=== PATIENT | male | born 1980 | race Caucasian/White ===

== ENCOUNTER 2016-10-14 11:02 | Emergency (ER) | payer BC ==
[~2016-10-14 11:02] MED LIST: PERC5TAB6 PO; TAMS0.4C2 PO
[2016-10-14] MEDS ORDERED: CYCLOBENZAPRINE 10 MG TAB As Ordered ONE (12:04)
[2016-10-14] MEDS ORDERED: ACETAMINOPHEN 325 MG TAB As Ordered ONE (12:04)
[2016-10-14] MEDS ORDERED: KETOROLAC 30 MG/ML VIAL (J1885) As Ordered ONE (12:04)
[2016-10-14 12:18] LABS: BASO % 0.4 % (0.0-1.0); EOS # 0.4 K/mm3 (0.0-0.50); EOS % 3.4 % (0.0-3.0); LARGE UNSTAINED CELL # 0.2 K/mm3 (0.0-0.4); LARGE UNSTAINED CELL % 1.5 % (0.0-4.0); LYMPH # 2.5 K/mm3 (1.5-4.5); LYMPH % 21.7 % (24.0-44.0); MEAN CORPUSCULAR HEMOGLOBIN 30.1 pg (27.0-33.0); MEAN CORPUSCULAR HGB CONC 34.1 g/dl (32.0-36.5); MEAN CORPUSCULAR VOLUME 88.2 fl (80.0-96.0); MONO # 0.6 K/mm3 (0.0-0.8); MONO % 5.7 % (0.0-5.0); NEUTROPHILS # 7.4 K/mm3 (1.8-7.7); NEUTROPHILS % 67.4 % (36.0-66.0); PLATELET COUNT, AUTOMATED 240 k/mm3 (150-450); RED CELL DISTRIBUTION WIDTH 12.2 % (11.5-14.5); WHITE BLOOD COUNT 10.9 K/mm3 (4.0-10.0)
[2016-10-14 12:40] LABS: ERYTHROCYTE SEDIMENTATION RATE 2 mm/hr (0-15)
--- NOTE | 2016-10-14 13:36 | REP ---
RIGHT ANKLE SERIES: Four views. HISTORY: Pain. FINDINGS: Four views right ankle demonstrate an intact ankle mortise. No fracture or subluxation is seen. IMPRESSION: Negative right ankle views. Signed by Roly Steven MD 10/14/2016 02:05 P
--- NOTE | 2016-10-14 13:37 | REP ---
CERVICAL SPINE SERIES: Seven views. HISTORY: Pain. FINDINGS: Lateral views done in flexion/extension and neutral position show preserved vertebral body heights and normal alignment. Disc spaces are maintained. No subluxation or instability is seen. Open mouth odontoid and AP views are unremarkable. Oblique images demonstrate intact neural foramina bilaterally at each cervical level and normally aligned facets. IMPRESSION: Negative cervical spine radiographs. Signed by Roly Steven MD 10/14/2016 02:05 P
--- NOTE | 2016-10-14 14:11 | EDDOCDS ---
Physician Documentation [facility] Name: Alfredo Maddox Age: 36 yrs Sex: Male : 1980 Arrival Date: 10/14/2016 Time: 11:02 Bed PD Private MD: NO PRIMARY PHYSICIAN, . Disposition: 10/14/16 13:52 Discharged to Home/Self Care. Impression: Cervicalgia, Pain in right leg. - Condition is Stable. - Discharge Instructions: Heat Therapy. - Prescriptions for naproxen 500 mg Oral tablet - take 1 tablet by ORAL route every 12 hours; 28 tablet. Tylenol 325 mg Oral Tablet - take 2 tablet by ORAL route every 6 hours as needed; 1 bottle. Cyclobenzaprine 10 mg Oral Tablet - take 1 tablet by ORAL route 3 times per day As needed; 15 tablet. - Medication Reconciliation, Local Pharmacy Hours form. - Follow up: Emergency Department; When: As soon as possible; Reason: Worsening of conditions. Follow up: Private Physician; When: 2 - 3 days; Reason: Recheck today's complaints. - Problem is new. - Symptoms are unchanged. Historical: - Allergies: no known allergies; - Home Meds: 1. none - PMHx: Kidney stones; - PSHx: Appendectomy; hernia; - Social history: Smoking status: Patient uses tobacco products, current every day smoker. No barriers to communication noted, The patient speaks fluent Dominican, Speaks appropriately for age. - Family history: Not pertinent. - : The pt / caregiver states he / she is not on anticoagulants. Home medication list is obtained from the patient. - Exposure Risk Screening:: None identified. Vital Signs: 10/14 11:04 BP 155 / 68 RA Sitting (auto/lg); Pulse 96; Resp 18; Temp 97.7(T); Pulse Ox 98% on R/A; rs6 Weight 72.57 kg / 159.99 lbs (R); Height 5 ft. 6 in. (167.64 cm) (R); Pain 9/10; 13:55 BP 136 / 78; Pulse 60; Resp 16; Temp 97.6; Pulse Ox 99% on R/A; Pain 8/10; kr3 14:06 BP 133 / 89; Pulse 62; Resp 16; Temp 96.7(O); Pulse Ox 98% on R/A; Pain 3/10; sew 11:04 Body Mass Index 25.82 (72.57 kg, 167.64 cm) rs6 MDM: 12:02 Ankle, Complete Ordered. EDMS 12:02 Cyclobenzaprine 10 mg PO once ordered. jk8 12:02 ketorolac 60 mg IM once ordered. jk8 12:02 Acetaminophen Tablet 650 mg PO once ordered. jk8 12:03 CRP Ordered. EDMS 12:03 Spine, Cervical Ordered. EDMS 12:03 CBC with Diff Ordered. EDMS 12:10 ERYTHROCYTE SEDIMENTATION RATE Ordered. EDMS 13:09 Financial registration complete. mpb 13:09 [facility] Payment Agreement was scanned into [employer] and attached to record. mpb 13:49 CBC with Diff Reviewed. jk8 13:49 CRP Reviewed. jk8 13:49 ERYTHROCYTE SEDIMENTATION RATE Reviewed. jk8 13:49 Ankle, Complete Reviewed. jk8 13:49 Spine, Cervical Reviewed. jk8 13:50 Vital Signs ordered. jk8 Administered Medications: 12:10 Drug: Cyclobenzaprine 10 mg [cyclobenzaprine 10 mg tablet (1 tabs)] Route: PO; jf3 13:56 Follow up: Response: No Adverse Reaction kr3 12:10 Drug: ketorolac 60 mg [ketorolac 30 mg/mL (1 mL) injection solution (2 mL)] Route: IM; jf3 Site: left gluteus; 13:56 Follow up: Response: No significant change. kr3 12:10 Drug: Acetaminophen 650 mg [acetaminophen 325 mg tablet (2 tabs)] Route: PO; jf3 13:56 Follow up: Response: No significant change. kr3 Signatures: Dispatcher [employer] EDMS Amber Marshall RN Lamberto Rooney PA-C PAAnh jk8 Tee Coe RN RN jf3 Sourav Gamble Reg Reg mpb Gay Fall RN kr3 The chart was reviewed and I authenticate all verbal orders and agree with the evaluation and treatment provided.Corrections: (The following items were deleted from the chart) 12:10 12:03 ERYTHROCYTE SEDIMENTATION RATE+LAB ordered. EDMS EDMS Attachments: 13:09 [facility] Payment Agreement mp MTDD
--- NOTE | 2016-10-14 14:11 | EDDOCDS ---
Nurse's Notes [facility] Name: Alfredo Maddox Age: 36 yrs Sex: Male : 1980 Arrival Date: 10/14/2016 Time: 11:02 Bed PD Private MD: NO PRIMARY PHYSICIAN, . Diagnosis: Cervicalgia;Pain in right leg Presentation: 10/14 11:06 Presenting complaint: Patient states: left sided of neck pain for a couple of days. no srm injury to neck. pain down neck into arm and back. also right ankle pain for 2-3 days no injury. Risk Factors No acute neurological deficit is noted. Adult Sepsis Screening: The patient does not have new or worsening altered mentation. Patient's respiratory rate is less than 22. Systolic blood pressure is greater than 100. Patient has a qSOFA score of 0- Negative Sepsis Screen. Suicide/Homicide risk assessment- the patient denies having any suicidal and/or homicidal ideations and does not present with any other emotional, behavioral or mental health complaints. Status: Patient is not a lubrication equipment servicer or dependent. Transition of care: patient was not received from another setting of care. 11:06 Acuity: ARISTEO Level 4 srm 11:06 Method Of Arrival: Walkin/Carried/Asstd srm Triage Assessment: 11:08 General: Appears uncomfortable, Behavior is appropriate for age, cooperative. Pain: srm Pain currently is 9 out of 10 on a pain scale. Musculoskeletal: Reports left side of neck and right ankle. 11:08 HIV screening NA for this visit Offered previously. srm Historical: - Allergies: no known allergies; - Home Meds: 1. none - PMHx: Kidney stones; - PSHx: Appendectomy; hernia; - Social history: Smoking status: Patient uses tobacco products, current every day smoker. No barriers to communication noted, The patient speaks fluent Uzbek, Speaks appropriately for age. - Family history: Not pertinent. - : The pt / caregiver states he / she is not on anticoagulants. Home medication list is obtained from the patient. - Exposure Risk Screening:: None identified. Screenin:10 Screening information is obtained from the patient. Fall risk: No risks identified. jf3 Assistance ADL's: requires no assistance with activities of daily living. Abuse/DV Screen: The patient / caregiver reports he/she is: not in a situation that causes fear, pain or injury. Nutritional screening: No deficits noted. Advance Directives: Currently, there is no health care proxy. home support is adequate. Assessment: 12:10 General: Appears in no apparent distress, uncomfortable, Behavior is cooperative. jf3 Pain:. Neurological: Level of Consciousness is awake, alert, Oriented to person, place, time. Cardiovascular: Capillary refill < 3 seconds Chest pain is denied. Respiratory: Airway is patent Respiratory effort is even, unlabored, Respiratory pattern is regular, symmetrical, Denies shortness of breath. Derm: Skin is pink, warm & dry. 13:48 Reassessment: Patient appears in no apparent distress at this time. reports no change kr3 in neck pain. Rates pain 8/10 left side of neck. Neurological: Level of Consciousness is awake, alert, Operation Manager are equal bilaterally Moves all extremities. Gait is steady. Respiratory: Respiratory effort is even, unlabored. 14:08 General: Appears in no apparent distress, comfortable, Behavior is cooperative. Pain: jf3 Pain currently is 3 out of 10 on a pain scale. Neurological: Level of Consciousness is awake, alert, Oriented to person, place, time. Cardiovascular: Capillary refill < 3 seconds Chest pain is denied. Respiratory: Airway is patent Respiratory effort is even, unlabored, Respiratory pattern is regular, symmetrical, Denies shortness of breath. Derm: Skin is pink, warm & dry. Vital Signs: 11:04 BP 155 / 68 RA Sitting (auto/lg); Pulse 96; Resp 18; Temp 97.7(T); Pulse Ox 98% on R/A; rs6 Weight 72.57 kg (R); Height 5 ft. 6 in. (167.64 cm) (R); Pain 9/10; 13:55 BP 136 / 78; Pulse 60; Resp 16; Temp 97.6; Pulse Ox 99% on R/A; Pain 8/10; kr3 14:06 BP 133 / 89; Pulse 62; Resp 16; Temp 96.7(O); Pulse Ox 98% on R/A; Pain 3/10; sew 11:04 Body Mass Index 25.82 (72.57 kg, 167.64 cm) rs6 Vitals: 11:04 Log In Time: October 14, 2016 at 11:04. rs6 ED Course: 11:03 Patient visited by Jeannie Zarco PCA. rs6 11:03 Patient moved to Waiting rs6 11:04 NO PRIMARY PHYSICIAN, . is Private Physician. rs6 11:05 Patient visited by Jeannie Zarco PCA. rs6 11:05 Patient moved to Pre RCE rs6 11:07 Triage Initiated srm 11:51 Patient moved to Triage 1 kr3 11:54 Lamberto Joseph PA-C is PHCP. jk8 11:54 Mari Clemens MD is Attending Physician. jk8 11:54 Patient visited by Lamberto Joseph PA-C. jk8 12:08 CBC with Diff Sent. sew 12:08 CRP Sent. sew 12:08 Labs drawn. (by ED staff). Sent per order to lab. sew 12:09 Patient visited by Mari Louise. sew 12:10 The patient / caregiver is instructed regarding the plan of care and ED course. jf3 12:13 Patient moved to TR1 sew 12:13 ERYTHROCYTE SEDIMENTATION RATE Sent. sew 13:09 [facility] Payment Agreement was scanned into [employer] and attached to record. mpb 13:40 Ankle, Complete Returned. EDMS 13:40 Spine, Cervical Returned. EDMS 13:47 Patient moved to PD kr3 13:48 Patient visited by Gay Fall RN. kr3 13:49 No IV's were initiated during this patient's visit. No procedures done that require kr3 assistance. 14:07 Patient visited by Mari Louise. sew Administered Medications: 12:10 Drug: Cyclobenzaprine 10 mg [cyclobenzaprine 10 mg tablet (1 tabs)] Route: PO; jf3 13:56 Follow up: Response: No Adverse Reaction kr3 12:10 Drug: ketorolac 60 mg [ketorolac 30 mg/mL (1 mL) injection solution (2 mL)] Route: IM; jf3 Site: left gluteus; 13:56 Follow up: Response: No significant change. kr3 12:10 Drug: Acetaminophen 650 mg [acetaminophen 325 mg tablet (2 tabs)] Route: PO; jf3 13:56 Follow up: Response: No significant change. kr3 Order Results: Lab Order: CRP; SPEC'M 10/14/16 12:07 Test: C REACTIVE PROTEIN QUANTITATIV; Value: < 0.30; Range: 0.00-0.30; Units: MG/DL; Status: F Lab Order: CBC with Diff; SPEC'M 10/14/16 12:07 Test: WHITE BLOOD COUNT; Value: 10.9; Range: 4.0-10.0; Abnormal: Above high normal; Units: K/mm3; Status: F Test: RED BLOOD COUNT; Value: 5.23; Range: 4.30-6.10; Units: M/mm3; Status: F Test: HEMOGLOBIN; Value: 15.7; Range: 14.0-18.0; Units: g/dl; Status: F Test: HEMATOCRIT; Value: 46.2; Range: 42.0-52.0; Units: %; Status: F Test: MEAN CORPUSCULAR VOLUME; Value: 88.2; Range: 80.0-96.0; Units: fl; Status: F Test: MEAN CORPUSCULAR HEMOGLOBIN; Value: 30.1; Range: 27.0-33.0; Units: pg; Status: F Test: MEAN CORPUSCULAR HGB CONC; Value: 34.1; Range: 32.0-36.5; Units: g/dl; Status: F Test: RED CELL DISTRIBUTION WIDTH; Value: 12.2; Range: 11.5-14.5; Units: %; Status: F Test: PLATELET COUNT, AUTOMATED; Value: 240; Range: 150-450; Units: k/mm3; Status: F Test: NEUTROPHILS %; Value: 67.4; Range: 36.0-66.0; Abnormal: Above high normal; Units: %; Status: F Test: LYMPH %; Value: 21.7; Range: 24.0-44.0; Abnormal: Below low normal; Units: %; Status: F Test: MONO %; Value: 5.7; Range: 0.0-5.0; Abnormal: Above high normal; Units: %; Status: F Test: EOS %; Value: 3.4; Range: 0.0-3.0; Abnormal: Above high normal; Units: %; Status: F Test: BASO %; Value: 0.4; Range: 0.0-1.0; Units: %; Status: F Test: LARGE UNSTAINED CELL %; Value: 1.5; Range: 0.0-4.0; Units: %; Status: F Test: NEUTROPHILS #; Value: 7.4; Range: 1.8-7.7; Units: K/mm3; Status: F Test: LYMPH #; Value: 2.5; Range: 1.5-4.5; Units: K/mm3; Status: F Test: MONO #; Value: 0.6; Range: 0.0-0.8; Units: K/mm3; Status: F Test: EOS #; Value: 0.4; Range: 0.0-0.50; Units: K/mm3; Status: F Test: BASO #; Value: 0.0; Range: 0.0-0.2; Units: K/mm3; Status: F Test: LARGE UNSTAINED CELL #; Value: 0.2; Range: 0.0-0.4; Units: K/mm3; Status: F Lab Order: ERYTHROCYTE SEDIMENTATION RATE; SPEC'M 10/14/16 12:07 Test: ERYTHROCYTE SEDIMENTATION RATE; Value: 2; Range: 0-15; Units: mm/hr; Status: F Radiology Order: Ankle, Complete Test: Ankle, Complete REASON FOR EXAMINATION: pain; RIGHT ANKLE SERIES: Four views.; ; HISTORY: Pain.; ; FINDINGS: Four views right ankle demonstrate an intact ankle mortise. No; fracture or subluxation is seen.; ; IMPRESSION:; Negative right ankle views.; ; ; ; ; Unreviewed; Radiology Order: Spine, Cervical Test: Spine, Cervical REASON FOR EXAMINATION: pain; CERVICAL SPINE SERIES: Seven views.; ; HISTORY: Pain.; ; FINDINGS: Lateral views done in flexion/extension and neutral position show; preserved vertebral body heights and normal alignment. Disc spaces are; maintained. No subluxation or instability is seen. Open mouth odontoid and AP; views are unremarkable. Oblique images demonstrate intact neural foramina; bilaterally at each cervical level and normally aligned facets.; ; IMPRESSION:; Negative cervical spine radiographs.; ; ; ; ; Unreviewed; Outcome: 13:52 Discharge ordered by Provider. jk8 14:09 Discharge Assessment: Patient awake, alert and oriented x 3. No cognitive and/or jf3 functional deficits noted. Patient verbalized understanding of disposition instructions. patient administered narcotics - no. The following High Risk Discharge criteria are identified: None. Discharged to home ambulatory. Condition: good. Discharge instructions given to patient, Instructed on discharge instructions, follow up and referral plans. medication usage, no driving heavy equipment, Demonstrated understanding of instructions, medications, Pt was receptive of discharge instructions/ teaching. No special radiology studies were completed. Property :Personal belongings accompany Pt. 14:10 Patient left the ED. jf3 Signatures: Dispatcher [employer] Amber Crain, RN Gay GoncalvesRN RN kr3 Mari Louise Rebecca, ANNEL DRY CURE WORKER rs6 Lamberto Joseph PA-C PAAnh jk8 Tee Coe RN RN jf3 Sourav Gamble, Reg Reg mpb Corrections: (The following items were deleted from the chart) 12:10 12:08 ERYTHROCYTE SEDIMENTATION RATE+LAB sent. eligio SMITH MTDD
--- NOTE | 2016-10-16 15:11 | EDDOCDS ---
Physician Documentation [facility] Name: Alfredo Maddox Age: 36 yrs Sex: Male : 1980 Arrival Date: 10/14/2016 Time: 11:02 Bed PD Private MD: NO PRIMARY PHYSICIAN, . Disposition: 10/14/16 13:52 Discharged to Home/Self Care. Impression: Cervicalgia, Pain in right leg. - Condition is Stable. - Discharge Instructions: Heat Therapy. - Prescriptions for naproxen 500 mg Oral tablet - take 1 tablet by ORAL route every 12 hours; 28 tablet. Tylenol 325 mg Oral Tablet - take 2 tablet by ORAL route every 6 hours as needed; 1 bottle. Cyclobenzaprine 10 mg Oral Tablet - take 1 tablet by ORAL route 3 times per day As needed; 15 tablet. - Medication Reconciliation, Local Pharmacy Hours form. - Follow up: Emergency Department; When: As soon as possible; Reason: Worsening of conditions. Follow up: Private Physician; When: 2 - 3 days; Reason: Recheck today's complaints. - Problem is new. - Symptoms are unchanged. Historical: - Allergies: no known allergies; - Home Meds: 1. none - PMHx: Kidney stones; - PSHx: Appendectomy; hernia; - Social history: Smoking status: Patient uses tobacco products, current every day smoker. No barriers to communication noted, The patient speaks fluent Afghan, Speaks appropriately for age. - Family history: Not pertinent. - : The pt / caregiver states he / she is not on anticoagulants. Home medication list is obtained from the patient. - Exposure Risk Screening:: None identified. Vital Signs: 10/14 11:04 BP 155 / 68 RA Sitting (auto/lg); Pulse 96; Resp 18; Temp 97.7(T); Pulse Ox 98% on R/A; rs6 Weight 72.57 kg / 159.99 lbs (R); Height 5 ft. 6 in. (167.64 cm) (R); Pain 9/10; 13:55 BP 136 / 78; Pulse 60; Resp 16; Temp 97.6; Pulse Ox 99% on R/A; Pain 8/10; kr3 14:06 BP 133 / 89; Pulse 62; Resp 16; Temp 96.7(O); Pulse Ox 98% on R/A; Pain 3/10; sew 11:04 Body Mass Index 25.82 (72.57 kg, 167.64 cm) rs6 MDM: 12:02 Ankle, Complete Ordered. EDMS 12:02 Cyclobenzaprine 10 mg PO once ordered. jk8 12:02 ketorolac 60 mg IM once ordered. jk8 12:02 Acetaminophen Tablet 650 mg PO once ordered. jk8 12:03 CRP Ordered. EDMS 12:03 Spine, Cervical Ordered. EDMS 12:03 CBC with Diff Ordered. EDMS 12:10 ERYTHROCYTE SEDIMENTATION RATE Ordered. EDMS 13:09 Financial registration complete. mpb 13:09 [facility] Payment Agreement was scanned into [employer] and attached to record. mpb 13:49 CBC with Diff Reviewed. jk8 13:49 CRP Reviewed. jk8 13:49 ERYTHROCYTE SEDIMENTATION RATE Reviewed. jk8 13:49 Ankle, Complete Reviewed. jk8 13:49 Spine, Cervical Reviewed. jk8 13:50 Vital Signs ordered. jk8 16:08 T-Sheet-- Draft Copy was scanned into [employer] and attached to record. gb Administered Medications: 12:10 Drug: Cyclobenzaprine 10 mg [cyclobenzaprine 10 mg tablet (1 tabs)] Route: PO; jf3 13:56 Follow up: Response: No Adverse Reaction kr3 12:10 Drug: ketorolac 60 mg [ketorolac 30 mg/mL (1 mL) injection solution (2 mL)] Route: IM; jf3 Site: left gluteus; 13:56 Follow up: Response: No significant change. kr3 12:10 Drug: Acetaminophen 650 mg [acetaminophen 325 mg tablet (2 tabs)] Route: PO; jf3 13:56 Follow up: Response: No significant change. kr3 Signatures: Dispatcher [employer] EDMS Amber Marshall RN RN srm Elzbieta Echavarria, Reg Reg gb Lamberto Joseph PA-C PAAnh jk8 Tee Coe RN RN jf3 Sourav Gamble, Reg Reg mpb Gay Fall RN kr3 The chart was reviewed and I authenticate all verbal orders and agree with the evaluation and treatment provided.Corrections: (The following items were deleted from the chart) 12:10 12:03 ERYTHROCYTE SEDIMENTATION RATE+LAB ordered. EDMS EDMS Attachments: 13:09 [facility] Payment Agreement mpb 16:08 T-Sheet-- Draft Copy gb Chart Complete MTDD
--- NOTE | 2016-10-16 15:11 | EDDOCDS ---
Nurse's Notes [facility] Name: Alfredo Maddox Age: 36 yrs Sex: Male : 1980 Arrival Date: 10/14/2016 Time: 11:02 Bed PD Private MD: NO PRIMARY PHYSICIAN, . Diagnosis: Cervicalgia;Pain in right leg Presentation: 10/14 11:06 Presenting complaint: Patient states: left sided of neck pain for a couple of days. no srm injury to neck. pain down neck into arm and back. also right ankle pain for 2-3 days no injury. Risk Factors No acute neurological deficit is noted. Adult Sepsis Screening: The patient does not have new or worsening altered mentation. Patient's respiratory rate is less than 22. Systolic blood pressure is greater than 100. Patient has a qSOFA score of 0- Negative Sepsis Screen. Suicide/Homicide risk assessment- the patient denies having any suicidal and/or homicidal ideations and does not present with any other emotional, behavioral or mental health complaints. Status: Patient is not a resident services supervisor or dependent. Transition of care: patient was not received from another setting of care. 11:06 Acuity: ARISTEO Level 4 srm 11:06 Method Of Arrival: Walkin/Carried/Asstd srm Triage Assessment: 11:08 General: Appears uncomfortable, Behavior is appropriate for age, cooperative. Pain: srm Pain currently is 9 out of 10 on a pain scale. Musculoskeletal: Reports left side of neck and right ankle. 11:08 HIV screening NA for this visit Offered previously. srm Historical: - Allergies: no known allergies; - Home Meds: 1. none - PMHx: Kidney stones; - PSHx: Appendectomy; hernia; - Social history: Smoking status: Patient uses tobacco products, current every day smoker. No barriers to communication noted, The patient speaks fluent Russian, Speaks appropriately for age. - Family history: Not pertinent. - : The pt / caregiver states he / she is not on anticoagulants. Home medication list is obtained from the patient. - Exposure Risk Screening:: None identified. Screenin:10 Screening information is obtained from the patient. Fall risk: No risks identified. jf3 Assistance ADL's: requires no assistance with activities of daily living. Abuse/DV Screen: The patient / caregiver reports he/she is: not in a situation that causes fear, pain or injury. Nutritional screening: No deficits noted. Advance Directives: Currently, there is no health care proxy. home support is adequate. Assessment: 12:10 General: Appears in no apparent distress, uncomfortable, Behavior is cooperative. jf3 Pain:. Neurological: Level of Consciousness is awake, alert, Oriented to person, place, time. Cardiovascular: Capillary refill < 3 seconds Chest pain is denied. Respiratory: Airway is patent Respiratory effort is even, unlabored, Respiratory pattern is regular, symmetrical, Denies shortness of breath. Derm: Skin is pink, warm & dry. 13:48 Reassessment: Patient appears in no apparent distress at this time. reports no change kr3 in neck pain. Rates pain 8/10 left side of neck. Neurological: Level of Consciousness is awake, alert, Supervisor Lending Activities are equal bilaterally Moves all extremities. Gait is steady. Respiratory: Respiratory effort is even, unlabored. 14:08 General: Appears in no apparent distress, comfortable, Behavior is cooperative. Pain: jf3 Pain currently is 3 out of 10 on a pain scale. Neurological: Level of Consciousness is awake, alert, Oriented to person, place, time. Cardiovascular: Capillary refill < 3 seconds Chest pain is denied. Respiratory: Airway is patent Respiratory effort is even, unlabored, Respiratory pattern is regular, symmetrical, Denies shortness of breath. Derm: Skin is pink, warm & dry. Vital Signs: 11:04 BP 155 / 68 RA Sitting (auto/lg); Pulse 96; Resp 18; Temp 97.7(T); Pulse Ox 98% on R/A; rs6 Weight 72.57 kg (R); Height 5 ft. 6 in. (167.64 cm) (R); Pain 9/10; 13:55 BP 136 / 78; Pulse 60; Resp 16; Temp 97.6; Pulse Ox 99% on R/A; Pain 8/10; kr3 14:06 BP 133 / 89; Pulse 62; Resp 16; Temp 96.7(O); Pulse Ox 98% on R/A; Pain 3/10; sew 11:04 Body Mass Index 25.82 (72.57 kg, 167.64 cm) rs6 Vitals: 11:04 Log In Time: October 14, 2016 at 11:04. rs6 ED Course: 11:03 Patient visited by Jeannie Zarco PCA. rs6 11:03 Patient moved to Waiting rs6 11:04 NO PRIMARY PHYSICIAN, . is Private Physician. rs6 11:05 Patient visited by Jeannie Zarco PCA. rs6 11:05 Patient moved to Pre RCE rs6 11:07 Triage Initiated srm 11:51 Patient moved to Triage 1 kr3 11:54 Lamberto Joseph PA-C is PHCP. jk8 11:54 Mari Clemens MD is Attending Physician. jk8 11:54 Patient visited by Lamberto Joseph PA-C. jk8 12:08 CBC with Diff Sent. sew 12:08 CRP Sent. sew 12:08 Labs drawn. (by ED staff). Sent per order to lab. sew 12:09 Patient visited by Mari Louise. sew 12:10 The patient / caregiver is instructed regarding the plan of care and ED course. jf3 12:13 Patient moved to TR1 sew 12:13 ERYTHROCYTE SEDIMENTATION RATE Sent. sew 13:09 [facility] [place] Payment Agreement was scanned into Inkv[employer] and attached to record. mpb 13:40 Ankle, Complete Returned. EDMS 13:40 Spine, Cervical Returned. EDMS 13:47 Patient moved to PD2 / kr3 13:48 Patient visited by Gay Fall RN. kr3 13:49 No IV's were initiated during this patient's visit. No procedures done that require kr3 assistance. 14:07 Patient visited by Mari Louise. sew 14:12 Ankle, Complete Returned. EDMS 14:12 Spine, Cervical Returned. EDMS 16:08 T-Sheet-- Draft Copy was scanned into Inkv[employer] and attached to record. gb Administered Medications: 12:10 Drug: Cyclobenzaprine 10 mg [cyclobenzaprine 10 mg tablet (1 tabs)] Route: PO; jf3 13:56 Follow up: Response: No Adverse Reaction kr3 12:10 Drug: ketorolac 60 mg [ketorolac 30 mg/mL (1 mL) injection solution (2 mL)] Route: IM; jf3 Site: left gluteus; 13:56 Follow up: Response: No significant change. kr3 12:10 Drug: Acetaminophen 650 mg [acetaminophen 325 mg tablet (2 tabs)] Route: PO; jf3 13:56 Follow up: Response: No significant change. kr3 Order Results: Lab Order: CRP; SPEC'M 10/14/16 12:07 Test: C REACTIVE PROTEIN QUANTITATIV; Value: < 0.30; Range: 0.00-0.30; Units: MG/DL; Status: F Lab Order: CBC with Diff; SPEC'M 10/14/16 12:07 Test: WHITE BLOOD COUNT; Value: 10.9; Range: 4.0-10.0; Abnormal: Above high normal; Units: K/mm3; Status: F Test: RED BLOOD COUNT; Value: 5.23; Range: 4.30-6.10; Units: M/mm3; Status: F Test: HEMOGLOBIN; Value: 15.7; Range: 14.0-18.0; Units: g/dl; Status: F Test: HEMATOCRIT; Value: 46.2; Range: 42.0-52.0; Units: %; Status: F Test: MEAN CORPUSCULAR VOLUME; Value: 88.2; Range: 80.0-96.0; Units: fl; Status: F Test: MEAN CORPUSCULAR HEMOGLOBIN; Value: 30.1; Range: 27.0-33.0; Units: pg; Status: F Test: MEAN CORPUSCULAR HGB CONC; Value: 34.1; Range: 32.0-36.5; Units: g/dl; Status: F Test: RED CELL DISTRIBUTION WIDTH; Value: 12.2; Range: 11.5-14.5; Units: %; Status: F Test: PLATELET COUNT, AUTOMATED; Value: 240; Range: 150-450; Units: k/mm3; Status: F Test: NEUTROPHILS %; Value: 67.4; Range: 36.0-66.0; Abnormal: Above high normal; Units: %; Status: F Test: LYMPH %; Value: 21.7; Range: 24.0-44.0; Abnormal: Below low normal; Units: %; Status: F Test: MONO %; Value: 5.7; Range: 0.0-5.0; Abnormal: Above high normal; Units: %; Status: F Test: EOS %; Value: 3.4; Range: 0.0-3.0; Abnormal: Above high normal; Units: %; Status: F Test: BASO %; Value: 0.4; Range: 0.0-1.0; Units: %; Status: F Test: LARGE UNSTAINED CELL %; Value: 1.5; Range: 0.0-4.0; Units: %; Status: F Test: NEUTROPHILS #; Value: 7.4; Range: 1.8-7.7; Units: K/mm3; Status: F Test: LYMPH #; Value: 2.5; Range: 1.5-4.5; Units: K/mm3; Status: F Test: MONO #; Value: 0.6; Range: 0.0-0.8; Units: K/mm3; Status: F Test: EOS #; Value: 0.4; Range: 0.0-0.50; Units: K/mm3; Status: F Test: BASO #; Value: 0.0; Range: 0.0-0.2; Units: K/mm3; Status: F Test: LARGE UNSTAINED CELL #; Value: 0.2; Range: 0.0-0.4; Units: K/mm3; Status: F Lab Order: ERYTHROCYTE SEDIMENTATION RATE; SPEC'M 10/14/16 12:07 Test: ERYTHROCYTE SEDIMENTATION RATE; Value: 2; Range: 0-15; Units: mm/hr; Status: F Radiology Order: Ankle, Complete Test: Ankle, Complete REASON FOR EXAMINATION: pain; RIGHT ANKLE SERIES: Four views.; ; HISTORY: Pain.; ; FINDINGS: Four views right ankle demonstrate an intact ankle mortise. No; fracture or subluxation is seen.; ; IMPRESSION:; ; Negative right ankle views.; ; ; Signed by; Roly Steven MD 10/14/2016 02:05 P; Radiology Order: Spine, Cervical Test: Spine, Cervical REASON FOR EXAMINATION: pain; CERVICAL SPINE SERIES: Seven views.; ; HISTORY: Pain.; ; FINDINGS: Lateral views done in flexion/extension and neutral position show; preserved vertebral body heights and normal alignment. Disc spaces are; maintained. No subluxation or instability is seen. Open mouth odontoid and AP; views are unremarkable. Oblique images demonstrate intact neural foramina; bilaterally at each cervical level and normally aligned facets.; ; IMPRESSION:; ; Negative cervical spine radiographs.; ; ; Signed by; Roly Steven MD 10/14/2016 02:05 P; Outcome: 13:52 Discharge ordered by Provider. jk8 14:09 Discharge Assessment: Patient awake, alert and oriented x 3. No cognitive and/or jf3 functional deficits noted. Patient verbalized understanding of disposition instructions. patient administered narcotics - no. The following High Risk Discharge criteria are identified: None. Discharged to home ambulatory. Condition: good. Discharge instructions given to patient, Instructed on discharge instructions, follow up and referral plans. medication usage, no driving heavy equipment, Demonstrated understanding of instructions, medications, Pt was receptive of discharge instructions/ teaching. No special radiology studies were completed. Property :Personal belongings accompany Pt. 14:10 Patient left the ED. jf3 Signatures: Dispatcher [employer] EDMS Amber Marshall, RN RN [facility] Elzbieta Echavarria, Reg Reg gb Gay Fall RN RN kr3 Mari Louise Rebecca, ANNEL UNIT COORDINATOR rs6 Lamberto Joseph, PAAnh PA-Nay jk8 Tee CoeRN RN jf3 Sourav Gamble, Reg Reg mpb Corrections: (The following items were deleted from the chart) 12:10 12:08 ERYTHROCYTE SEDIMENTATION RATE+LAB sent. eligio SMITH Chart Complete MTDD
--- NOTE | 2016-10-16 15:11 | EDDOCDS ---
Physician Documentation [facility] Name: Alfredo Maddox Age: 36 yrs Sex: Male : 1980 Arrival Date: 10/14/2016 Time: 11:02 Bed PD Private MD: NO PRIMARY PHYSICIAN, . Disposition: 10/14/16 13:52 Discharged to Home/Self Care. Impression: Cervicalgia, Pain in right leg. - Condition is Stable. - Discharge Instructions: Heat Therapy. - Prescriptions for naproxen 500 mg Oral tablet - take 1 tablet by ORAL route every 12 hours; 28 tablet. Tylenol 325 mg Oral Tablet - take 2 tablet by ORAL route every 6 hours as needed; 1 bottle. Cyclobenzaprine 10 mg Oral Tablet - take 1 tablet by ORAL route 3 times per day As needed; 15 tablet. - Medication Reconciliation, Local Pharmacy Hours form. - Follow up: Emergency Department; When: As soon as possible; Reason: Worsening of conditions. Follow up: Private Physician; When: 2 - 3 days; Reason: Recheck today's complaints. - Problem is new. - Symptoms are unchanged. Historical: - Allergies: no known allergies; - Home Meds: 1. none - PMHx: Kidney stones; - PSHx: Appendectomy; hernia; - Social history: Smoking status: Patient uses tobacco products, current every day smoker. No barriers to communication noted, The patient speaks fluent Czech, Speaks appropriately for age. - Family history: Not pertinent. - : The pt / caregiver states he / she is not on anticoagulants. Home medication list is obtained from the patient. - Exposure Risk Screening:: None identified. Vital Signs: 10/14 11:04 BP 155 / 68 RA Sitting (auto/lg); Pulse 96; Resp 18; Temp 97.7(T); Pulse Ox 98% on R/A; rs6 Weight 72.57 kg / 159.99 lbs (R); Height 5 ft. 6 in. (167.64 cm) (R); Pain 9/10; 13:55 BP 136 / 78; Pulse 60; Resp 16; Temp 97.6; Pulse Ox 99% on R/A; Pain 8/10; kr3 14:06 BP 133 / 89; Pulse 62; Resp 16; Temp 96.7(O); Pulse Ox 98% on R/A; Pain 3/10; sew 11:04 Body Mass Index 25.82 (72.57 kg, 167.64 cm) rs6 MDM: 12:02 Ankle, Complete Ordered. EDMS 12:02 Cyclobenzaprine 10 mg PO once ordered. jk8 12:02 ketorolac 60 mg IM once ordered. jk8 12:02 Acetaminophen Tablet 650 mg PO once ordered. jk8 12:03 CRP Ordered. EDMS 12:03 Spine, Cervical Ordered. EDMS 12:03 CBC with Diff Ordered. EDMS 12:10 ERYTHROCYTE SEDIMENTATION RATE Ordered. EDMS 13:09 Financial registration complete. mpb 13:09 [facility] Payment Agreement was scanned into [employer] and attached to record. mpb 13:49 CBC with Diff Reviewed. jk8 13:49 CRP Reviewed. jk8 13:49 ERYTHROCYTE SEDIMENTATION RATE Reviewed. jk8 13:49 Ankle, Complete Reviewed. jk8 13:49 Spine, Cervical Reviewed. jk8 13:50 Vital Signs ordered. jk8 16:08 T-Sheet-- Draft Copy was scanned into X[employer] and attached to record. gb Administered Medications: 12:10 Drug: Cyclobenzaprine 10 mg [cyclobenzaprine 10 mg tablet (1 tabs)] Route: PO; jf3 13:56 Follow up: Response: No Adverse Reaction kr3 12:10 Drug: ketorolac 60 mg [ketorolac 30 mg/mL (1 mL) injection solution (2 mL)] Route: IM; jf3 Site: left gluteus; 13:56 Follow up: Response: No significant change. kr3 12:10 Drug: Acetaminophen 650 mg [acetaminophen 325 mg tablet (2 tabs)] Route: PO; jf3 13:56 Follow up: Response: No significant change. kr3 Signatures: Dispatcher [employer] EDMS Amber Marshall RN RN srm Elzbieta Echavarria, Reg Reg gb Lamberto Joseph PA-C PAAnh jk8 Tee Coe RN RN jf3 Sourav Gamble, Reg Reg mpb Gay Fall RN kr3 The chart was reviewed and I authenticate all verbal orders and agree with the evaluation and treatment provided.Corrections: (The following items were deleted from the chart) 12:10 12:03 ERYTHROCYTE SEDIMENTATION RATE+LAB ordered. EDMS EDMS Attachments: 13:09 MD-EM Payment Agreement mpb 16:08 T-Sheet-- Draft Copy gb Chart Complete MTDD
== END 2016-10-14 14:10 | disposition home or self-care (01) ==
LOC: M ED 11:02
DX: S16.1XXA Strain of muscle, fascia and tendon at neck level, initial encounter (principal); X58.XXXA Exposure to other specified factors, initial encounter; Y92.89 Other specified places as the place of occurrence of the external cause; Y93.89 Activity, other specified; Y99.8 Other external cause status; M79.661 Pain in right lower leg; F17.200 Nicotine dependence, unspecified, uncomplicated
CPT/HCPCS: 36415; 72052; 73610; 85025; 85652; 86140; 96372; 99284; J1885

== ENCOUNTER → 2017-08-29 | Outpatient (CLI) | payer BC ==
[~2017-08-29] MED LIST changes: +PERC5TAB12 PO; -PERC5TAB6 PO
--- NOTE | 2017-08-29 20:47 | REP ---
MRI RIGHT SHOULDER: TECHNIQUE: Axial T2 fat sat, gradient echo, sagittal oblique T2 fat sat, coronal oblique T1, T2 fat sat. There is mild ill-defined high signal involving the supraspinatus tendon on T2-weighted images compatible with mild tendinopathy/tendinitis. No rotator cuff tendon tear is seen. There are mild hypertrophic degenerative changes of the acromioclavicular joint with mild subchondral marrow edema at the joint. Acromion is mildly downward sloping. The acromion is type 2. In addition, there is an os acromiale present with edema along the synchondrosis. Biceps tendon is within the bicipital groove. There is no Hill-Sachs deformity. The deltoid muscle demonstrates no abnormal signal. The biceps labral complex is intact. There is no evidence of a labral tear. No paralabral cyst is seen. There is a normal amount of joint fluid. IMPRESSION: Mild hypertrophic degenerative changes acromioclavicular joint with downward sloping, type 2 acromion. There is an os acromiale with edema noted at the synchondrosis. Mild supraspinatus tendinopathy/tendinitis without evidence of a rotatory cuff tear. No evidence of a labral tear. Signed by Fredis Neal MD 08/30/2017 11:51 A
== END ==
LOC: M RAD 18:30
PROVIDERS: ATTEND Orthopaedic Surgery
DX: M25.511 Pain in right shoulder (principal); M25.411 Effusion, right shoulder; M94.8X1 Other specified disorders of cartilage, shoulder

== ENCOUNTER → 2017-09-10 | Outpatient (CLI) | payer BC | LOC: M RAD 16:44 | DX: M47.812 Spondylosis without myelopathy or radiculopathy, cervical region (principal); M25.811 Other specified joint disorders, right shoulder; M54.12 Radiculopathy, cervical region; D75.89 Other specified diseases of blood and blood-forming organs | CPT/HCPCS: 72141 ==

== ENCOUNTER 2017-10-18 11:49 | Emergency (ER) | payer OTHER, BC | END 2017-10-18 13:18 | disposition home or self-care (01) | LOC: M ED 11:49 | DX: M25.512 Pain in left shoulder (principal); X58.XXXA Exposure to other specified factors, initial encounter; Y92.098 Other place in other non-institutional residence as the place of occurrence of the external cause | CPT/HCPCS: 73030 ==

== ENCOUNTER → 2017-11-28 | Outpatient (REF) | payer BC | LOC: M SFHCLERA 19:19 | DX: J02.9 Acute pharyngitis, unspecified (principal) ==

== ENCOUNTER 2018-05-16 11:56 | Emergency (ER) | payer BC ==
[2018-05-16] MEDS ORDERED: POLYSPORIN TOPICAL OINTMENT 15GM As Ordered (13:56)
== END 2018-05-16 14:22 | disposition home or self-care (01) ==
LOC: M ED 11:56
DX: B07.0 Plantar wart (principal); F17.210 Nicotine dependence, cigarettes, uncomplicated; Z79.899 Other long term (current) drug therapy; Z87.442 Personal history of urinary calculi
CPT/HCPCS: 17110

== ENCOUNTER → 2018-07-17 | Outpatient (REF) | payer BC | LOC: M SFHCLERA 20:37 | DX: R53.81 Other malaise (principal) ==

== ENCOUNTER 2018-10-22 15:01 | Emergency (ER) | payer BC, MEDICAID, SELFPAY ==
[~2018-10-22] VITALS: Ht 167.6 cm; Wt 72.7 kg
[~2018-10-22 15:01] MED LIST changes: +CELE50CA PO; +GABA-845 PO; +NAPR-50 PO; +NORCOTAB PO
[2018-10-22 15:02] VITALS: BP 144/78
[2018-10-22] MEDS ORDERED: ADACEL/BOOSTRIX VACCINE (DIPHTH/PERTUSS/ACELL/TETANUS)0.5ML SYR (90715) IM ONE (16:15)
[2018-10-22] MEDS ORDERED: IBUPROFEN 800 MG TAB PO ONE (16:15)
--- NOTE | 2018-10-22 17:17 | REP ---
RIGHT HAND, FOUR VIEWS: HISTORY: Injury. There is a nondisplaced fracture of the 2nd metacarpal. There is no dislocation. The joint spaces are normal in appearance. IMPRESSION: Nondisplaced fracture of the 2nd metacarpal. Electronically Signed by Mark Beard MD 10/23/2018 08:14 A
== END 2018-10-22 17:06 | disposition home or self-care (01) ==
LOC: M ED 15:01
DX: S62.300A Unspecified fracture of second metacarpal bone, right hand, initial encounter for closed fracture (principal); W23.0XXA Caught, crushed, jammed, or pinched between moving objects, initial encounter; Y92.810 Car as the place of occurrence of the external cause; Z79.899 Other long term (current) drug therapy

== ENCOUNTER 2019-07-12 16:43 | Emergency (ER) | payer BC, MEDICAID ==
[~2019-07-12] VITALS: Ht 167.6 cm; Wt 72.6 kg
[2019-07-12 16:43] VITALS: BP 127/72
[~2019-07-12 16:43] MED LIST changes: +HYDR-3715 PO; -NAPR-50 PO; +NAPR-837 PO; -NORCOTAB PO
[2019-07-12] MEDS ORDERED: DOXYCYCLINE HYCLATE 100 MG TAB PO ONE (17:30)
[2019-07-15 00:06] LABS: Lyme Disease IgG/IgM Antibodie <0.91 ISR (0.00-0.90); Lyme Disease IgM Ab Quantitati <0.80 index (0.00-0.79)
== END 2019-07-12 17:53 | disposition home or self-care (01) ==
LOC: M ED 16:43
DX: S70.361A Insect bite (nonvenomous), right thigh, initial encounter (principal); W57.XXXA Bitten or stung by nonvenomous insect and other nonvenomous arthropods, initial encounter; F17.210 Nicotine dependence, cigarettes, uncomplicated

== ENCOUNTER → 2020-07-06 | Outpatient (CLI) | payer BC ==
--- NOTE | 2020-07-07 09:48 | REP ---
INDICATION: NODULE OF SKIN OF ABD COMPARISON: None. TECHNIQUE: Real time garcia scale ultrasound examination using linear high-frequency transducer. FINDINGS: Directed ultrasound examination in the region of the umbilicus and palpable mass demonstrates a small fat containing supraumbilical hernia with a peritoneal defect of 4.8 mm on Valsalva as well as a small fat containing umbilical hernia with a peritoneal defect of 6.7 mm on Valsalva. IMPRESSION: Small fat containing hernias as described above. <Electronically signed by Ilir Webb > 07/07/20 [id number]
== END ==
LOC: M RAD 12:00
PROVIDERS: ATTEND Physician Assistant
DX: R22.2 Localized swelling, mass and lump, trunk (principal)

== ENCOUNTER 2020-09-15 04:46 | Emergency (ER) | payer OTHER, BC ==
[~2020-09-15] VITALS: Ht 167.6 cm; Wt 68.2 kg
[2020-09-15] MEDS ORDERED: GABA600T4 (04:51)
--- NOTE | 2020-09-15 05:46 | REPVR ---
PROCEDURE INFORMATION: Exam: XR Left Knee Exam date and time: 09/15/2020 4:51 AM Age: 40 years old Clinical indication: Other: Pain TECHNIQUE: Imaging protocol: XR Left knee. Views: 4 or more views. COMPARISON: CR Knee, complete 12/17/2014 8:51 AM FINDINGS: Bones/joints: Normal. Soft tissues: Normal. IMPRESSION: No acute findings. Electronically signed by: Kevin Lo On 09/15/2020 05:46:37 AM
[2020-09-15] MEDS ORDERED: KETOROLAC 30 MG/ML 1ML VIAL IM ONE (07:00)
--- NOTE | 2020-09-15 08:20 | REPVR ---
PROCEDURE INFORMATION: Exam: US Duplex Left Lower Extremity Veins, Limited Exam date and time: 09/15/2020 7:26 AM Age: 40 years old Clinical indication: Pain; Other: Knee; Additional info: R/O dvt lle TECHNIQUE: Imaging protocol: Real-time Duplex ultrasound of the Left Lower Extremity with 2-D garcia scale, color Doppler flow and spectral waveform analysis with image documentation. Limited exam focused on the left lower extremity veins. COMPARISON: No relevant prior studies available. FINDINGS: Left deep veins: Unremarkable. The common femoral, femoral, proximal profunda femoral and popliteal veins are patent without thrombus. Normal Doppler waveforms. Normal compressibility and/or augmentation response. Left superficial veins: Unremarkable. Saphenofemoral junction is patent without thrombus. Soft tissues: Unremarkable. IMPRESSION: No evidence of deep vein thrombosis. Electronically signed by: Kevin Lo On 09/15/2020 08:20:43 AM
[2020-09-15 09:06] LABS: BASO % 0.4 % (0.0-1.0); EOS # 0.2 10^3/uL (0.0-0.5); EOS % 2.1 % (0.0-3.0); HEMATOCRIT 46.4 % (42.0-52.0); HEMOGLOBIN 14.9 g/dl (13.5-17.5); LYMPH # 2.7 10^3/uL (1.5-5.0); LYMPH % 24.2 % (24.0-44.0); MEAN CORPUSCULAR HEMOGLOBIN 29.4 pg (27.0-33.0); MEAN CORPUSCULAR HGB CONC 32.1 g/dl (32.0-36.5); MEAN CORPUSCULAR VOLUME 91.5 fl (80.0-96.0); MONO # 0.8 10^3/uL (0.0-0.8); NEUTROPHILS # 7.4 10^3/uL (1.5-8.5); PLATELET COUNT, AUTOMATED 222 10^3/uL (150-450); RED BLOOD COUNT 5.07 10^6/uL (4.30-6.10); WHITE BLOOD COUNT 11.2 10^3/uL (4.0-10.0)
[2020-09-15 09:46] LABS: ERYTHROCYTE SEDIMENTATION RATE 1 mm/hr (0-15)
[2020-09-15 11:07] VITALS: BP 137/63
== END 2020-09-15 11:08 | disposition home or self-care (01) ==
LOC: M ED 04:46
DX: S83.402A Sprain of unspecified collateral ligament of left knee, initial encounter (principal); X50.0XXA Overexertion from strenuous movement or load, initial encounter; Y92.9 Unspecified place or not applicable; Y93.9 Activity, unspecified; Y99.0 Civilian activity done for income or pay; Z79.899 Other long term (current) drug therapy
CPT/HCPCS: 73564; 80047; 85025; 85652; 86140; 93971; 96372; 99284; J1885

== ENCOUNTER → 2020-10-04 | Outpatient (CLI) | payer BC ==
[~2020-10-04] MED LIST changes: +GABA600T4
--- NOTE | 2020-10-05 09:19 | REP ---
INDICATION: PAIN IN LEFT KNEE. COMPARISON: Comparison left knee radiographs are from September 15, 2020.. TECHNIQUE: Sagittal, axial, and coronal imaging planes utilized. T1 and T2 weighted scans are included with without fat saturation. FINDINGS: There are 2 areas of subcortical cyst formation in the posterolateral tibial metaphysis adjacent to the proximal tibiofibular articulation. The largest of these measures 9 mm in greatest diameter. There are radiolucencies corresponding to these on the radiographs with well-circumscribed margins. Cortical and medullary bone signal intensity is normal in the fibular head. Three there is some T2 hyperintensity in the articular cartilage at the proximal tibiofibular articulation on sagittal T2 weighted scans. These cysts may be arthritis associated subcortical cysts. Cortical and medullary bone signal intensity is otherwise unremarkable. There is no evidence of joint effusion. No Valero's cyst is appreciated. Medial and lateral patellar retinacular structures are intact. Patellar and quadriceps tendon 7 intact appearance. Anterior and posterior cruciate ligaments are unremarkable. There is no evidence of medial or lateral collateral ligament disruption. No medial or lateral meniscal tear is appreciated. There is focal area of signal intensity abnormality and thickening of the articular cartilage of the medial femoral condyle anteriorly. This is consistent with chondromalacia. No other articular cartilaginous lesion is seen. There is minimal heterogeneous signal in the central patellar articular cartilage. IMPRESSION: No evidence of internal derangement. 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 Also noted are subcortical cysts in the posterolateral tibial plateau adjacent to and apparently associated with the proximal tibiofibular articulation. There is some chondromalacia anteriorly along this articulation on sagittal T2 weighted scans as well. <Electronically signed by Chadwick Steven > 10/05/20 09
== END ==
LOC: M RAD 17:18
PROVIDERS: ATTEND Orthopaedic Surgery Sports Medicine
DX: M94.262 Chondromalacia, left knee (principal); M85.462 Solitary bone cyst, left tibia and fibula

== ENCOUNTER → 2020-12-30 | Outpatient (CLI) | payer BC | LOC: M LABSMTC 09:52 | PROVIDERS: ATTEND Anesthesiology | DX: Z01.812 Encounter for preprocedural laboratory examination (principal) ==

== ENCOUNTER 2021-01-04 10:23 | Day surgery (SDC) | payer BC ==
[~2021-01-04] VITALS: Ht 167.6 cm; Wt 73.4 kg
[~2021-01-04 10:23] MED LIST changes: +ACETAMINOPHEN 1000MG 100ML IV BTL (OFIRMEV) (J0131 PER 10MG) As Ordered ONE; +CelecoXIB 400 MG CAP PO ONE; +LIDOCAINE 2% 100MG/5ML SDV (FOR ANES.) As Ordered ONE; +LR 1,000 ML IV ONE; +MIDAZOLAM INJ 2MG/2ML VIAL (J2250 PER 1MG) As Ordered ONE; +ONDANSETRON 4MG/2ML VIAL As Ordered ONE; +PHENYLephrine 500MCG 5ML (100MCG/ML) SYRINGE As Ordered ONE; +ROCURONIUM BROMIDE 50 MG/5 ML VIAL As Ordered ONE; +SUGAMMADEX SODIUM 500 MG/5 ML VIAL (BRIDION) As Ordered ONE; +ceFAZolin SOD 2 GM in IV 1 EA IV ONE; +dexameTHASONE 4 MG/ML 1ML VIAL (J1100 PER 1MG) As Ordered ONE; +ePHEDrine SULFATE 25 MG/5 ML(5MG/ML) SYRINGE As Ordered ONE; +fentaNYL 250 MCG/5 ML INJECTION (J3010) As Ordered ONE; +propofoL 200 MG/20 ML VIAL As Ordered ONE
[2021-01-04] MEDS ORDERED: CelecoXIB 400 MG CAP PO ONE (10:45)
[2021-01-04] MEDS ORDERED: LIDOCAINE 1% SDV 30ML VIAL As Ordered ONE (12:26)
[2021-01-04] MEDS ORDERED: BUPIVACAINE HCL 0.25% 10ML VIAL As Ordered ONE (12:26)
[2021-01-04] MEDS ORDERED: BUPIVACAINE LIPOSOME/PF 1.3% 20ML VIAL (13.3MG/ML)(EXPAREL)(C9290 PER1MG) As Ordered ONE (12:27)
[2021-01-04] MEDS ORDERED: BUPIVACAINE HCL 0.25% 30ML VIAL As Ordered ONE (12:27)
[2021-01-04] MEDS ORDERED: GLYCOPYRROLATE INJ 0.2 MG/ML 2 ML VIAL As Ordered ONE (13:37)
[2021-01-04] MEDS ORDERED: LR 1,000 ML IV SCH (16:00)
[2021-01-04] MEDS ORDERED: KETOROLAC 30 MG/ML 1ML VIAL IV PRN (16:00)
[2021-01-04] MEDS: PERCOCET 5MG/325MG TAB PO PRN ×2 (16:03→16:38)
[2021-01-04] MEDS: fentaNYL 100 MCG/2 ML INJECTION (J3010) IV PRN ×4 (16:04→16:19)
[2021-01-04 17:30] VITALS: BP 125/62
[2021-01-05] MEDS ORDERED: UNRESOLVED CLARIFICATION ENTRY XX SCH (00:01)
--- NOTE | 2021-01-05 05:50 | ROOPDOC ---
[facility] Report Of Operation Report of Operation DATE OF PROCEDURE: 01/04/21 PREPROCEDURE DIAGNOSES: incarcerated epigastric hernia, umbilical hernia. POSTPROCEDURE DIAGNOSES: incarcerated epigastric hernia, umbilical hernia. PROCEDURE: Robotic assisted laparoscopic repair of epigastric and umbilical hernia (rTAPP, 15x 8 cms progrip mesh placed). SURGEON: Michelle Whitman MD ULTRASOUND MANAGER: Cristine Salcedo NP (assisted me with placement of ports, management/adjustment of the robotic arms, instrument exchange, mesh placement and port site closures) ANESTHESIA: General Endotracheal Anesthesia. ESTIMATED BLOOD LOSS: Approximately 20 mL. COMPLICATIONS: none. REMARKS: 40 M with discomfort from incarcerated epigastric hernia, also has umbilical hernia. PROCEDURE NOTE: . DESCRIPTION OF PROCEDURE: . MICHELLE WHITMAN MD Jan 05, 2021 05:50
== END 2021-01-04 17:32 | disposition home or self-care (01) ==
LOC: M SDC 10:23
PROVIDERS: ATTEND Surgery
DX: K42.0 Umbilical hernia with obstruction, without gangrene (principal); K43.9 Ventral hernia without obstruction or gangrene; Z79.899 Other long term (current) drug therapy; F17.218 Nicotine dependence, cigarettes, with other nicotine-induced disorders
CPT/HCPCS: 49653; C1781; C9290; J0131; J0690; J1100; J1885; J2250; J2370; J2405; J3010; S2900

== ENCOUNTER 2021-01-07 12:15 | Emergency (ER) | payer BC ==
[~2021-01-07] VITALS: Ht 167.6 cm; Wt 72.7 kg
[~2021-01-07 12:15] MED LIST changes: -ACETAMINOPHEN 1000MG 100ML IV BTL (OFIRMEV) (J0131 PER 10MG) As Ordered ONE; -CelecoXIB 400 MG CAP PO ONE; -LIDOCAINE 2% 100MG/5ML SDV (FOR ANES.) As Ordered ONE; -LR 1,000 ML IV ONE; -MIDAZOLAM INJ 2MG/2ML VIAL (J2250 PER 1MG) As Ordered ONE; -ONDANSETRON 4MG/2ML VIAL As Ordered ONE; -PHENYLephrine 500MCG 5ML (100MCG/ML) SYRINGE As Ordered ONE; -ROCURONIUM BROMIDE 50 MG/5 ML VIAL As Ordered ONE; -SUGAMMADEX SODIUM 500 MG/5 ML VIAL (BRIDION) As Ordered ONE; -ceFAZolin SOD 2 GM in IV 1 EA IV ONE; -dexameTHASONE 4 MG/ML 1ML VIAL (J1100 PER 1MG) As Ordered ONE; -ePHEDrine SULFATE 25 MG/5 ML(5MG/ML) SYRINGE As Ordered ONE; -fentaNYL 250 MCG/5 ML INJECTION (J3010) As Ordered ONE; -propofoL 200 MG/20 ML VIAL As Ordered ONE
[2021-01-07] MEDS ORDERED: OXYC1TAB23 PO (12:23)
[2021-01-07] MEDS ORDERED: ONDANSETRON 4MG/2ML VIAL IV ONE (12:55)
[2021-01-07] MEDS ORDERED: NS 1,000 ML IV SCH (12:55)
[2021-01-07 13:10] LABS: BASO % 0.4 % (0.0-1.0); EOS # 0.2 10^3/uL (0.0-0.5); HEMATOCRIT 46.3 % (42.0-52.0); HEMOGLOBIN 15.2 g/dl (13.5-17.5); LYMPH # 2.6 10^3/uL (1.5-5.0); LYMPH % 26.6 % (24.0-44.0); MEAN CORPUSCULAR HEMOGLOBIN 29.6 pg (27.0-33.0); MEAN CORPUSCULAR HGB CONC 32.8 g/dl (32.0-36.5); MEAN CORPUSCULAR VOLUME 90.1 fl (80.0-96.0); MONO # 0.7 10^3/uL (0.0-0.8); MONO % 6.6 % (2.0-8.0); NEUTROPHILS # 6.4 10^3/uL (1.5-8.5); NEUTROPHILS % 64.2 % (36.0-66.0); PLATELET COUNT, AUTOMATED 219 10^3/uL (150-450); RED BLOOD COUNT 5.14 10^6/uL (4.30-6.10); WHITE BLOOD COUNT 9.9 10^3/uL (4.0-10.0)
[2021-01-07 13:22] LABS: INR 0.93; PROTHROMBIN TIME 12.7 SECONDS (12.5-14.3)
[2021-01-07 13:23] LABS: PARTIAL THROMBOPLASTIN TIME 29.7 SECONDS (24.2-38.5)
[2021-01-07 13:32] LABS: ALBUMIN 3.9 GM/DL (3.2-5.2); ALT/SGPT 54 U/L (12-78); BILIRUBIN,DIRECT 0.1 MG/DL (0.0-0.2); BILIRUBIN,TOTAL 0.5 MG/DL (0.2-1.0); CK-MB VALUE MASS < 1.0 NG/ML (<3.6); CPK CREATINE PHOSPHOKINASE 313 U/L (39-308); LIPASE 32 U/L (73-393); MB/CK RELATIVE INDEX 0.32 (< OR =4); TOTAL PROTEIN 6.6 GM/DL (6.4-8.2); TROPONIN I < 0.02 NG/ML (< 0.10)
[2021-01-07] MEDS ORDERED: ISOVUE-370 76% 100ML VIAL As Ordered ONE (13:32)
[2021-01-07] MEDS ORDERED: MORPHINE 4 MG/ML 1ML VIAL/SYRINGE (J2270) IV PRN (13:45)
--- NOTE | 2021-01-07 14:24 | REP ---
INDICATION: sp hernia repair wed,chest pain, abdom pain COMPARISON: None. TECHNIQUE: Axial contrast enhanced images from the thoracic inlet to the upper abdomen using pulmonary embolus technique with multiplanar re-formations. 100 ml Isovue 370 intravenous contrast material administered without complication. This CT examination was performed using the following dose reduction techniques: Automated exposure control, adjustment of mA and/or kv according to the patient's size, and use of iterative reconstruction technique. FINDINGS: Satisfactory enhancement of the pulmonary vasculature is achieved and no filling defects are identified to suggest pulmonary embolus. Further evaluation of the mediastinum demonstrates normal thoracic aorta, heart and pericardium. Trace right basilar atelectasis noted. Lung hayes are otherwise clear. No effusion. No pneumothorax. No adenopathy noted. Surrounding musculoskeletal structures intact limited upper abdomen demonstrates trace free air below the right hemidiaphragm likely related to recent surgery. IMPRESSION: No evidence for pulmonary embolus. Trace right basilar atelectasis. Trace free air below the right hemidiaphragm likely related to recent surgery. <Electronically signed by Ilir Webb > 01/07/21 [id number]
--- NOTE | 2021-01-07 14:28 | REP ---
INDICATION: sp hernia repair wed,chest pain, abdom pain. COMPARISON: 12/26/2015 TECHNIQUE: Axial contrast-enhanced images from the lung bases to the pubic symphysis using 100 cc Isovue 370 intravenous contrast material. Coronal and sagittal reformations obtained.. This CT examination was performed using the following dose reduction techniques: Automated exposure control, adjustment of mA and/or kv according to the patient's size, and the use of iterative reconstruction technique. FINDINGS: Liver, spleen, pancreas, gallbladder, bilateral adrenal glands and kidneys are normal. Miniscule amount of free air below the right hemidiaphragm is consistent with recent surgery. The enteric system demonstrates moderate fecal stasis and presumed constipation likely related to recent surgery. Small bowel is normal in appearance without obstruction. Few scattered sigmoid diverticula noted without acute diverticulitis.. Pelvis demonstrates normal bladder and age-appropriate prostate/seminal vesicles. No ascites. No intraperitoneal or retroperitoneal adenopathy. Abdominal aorta and vasculature appear normal. Musculoskeletal structures are intact and without acute osseous abnormality. A 1 cm fluid collection is identified in the midline subcutaneous supraumbilical soft tissue along with subtle infiltration to the subcutaneous tissue along the right flank likely related to surgery. IMPRESSION: No acute abdominopelvic pathology appreciated. Mild presumed postsurgical changes. Moderate fecal stasis and constipation. <Electronically signed by Ilir Webb > 01/07/21 [id number]
[2021-01-07] MEDS ORDERED: COLA100C5 PO (15:26)
[2021-01-07 15:39] VITALS: BP 109/59
--- NOTE | 2021-01-07 19:17 | ECGEPIP ---
[facility] - ED Test Date: 2021-01-07 Pat Name: HUMA LEVI Department: Room: - Gender: Male Patient Portal Representative: : 1980 Requested By: Lani Yusuf Order Number: [id number] Reading MD: Lani Yusuf Measurements Intervals [place]ister Rate: 56 P: 34 DC: 126 QRS: 66 QRSD: 100 T: 39 QT: 406 QTc: 391 Interpretive Statements Sinus bradycardia Nonspecific ST T wave changes No prior ECG for comparison Electronically Signed on 01-07-2021 19:17:47 EDT by Lani Yusuf
== END 2021-01-07 15:42 | disposition home or self-care (01) ==
LOC: M ED 12:15
DX: R07.9 Chest pain, unspecified (principal); G89.18 Other acute postprocedural pain; R10.9 Unspecified abdominal pain; K59.00 Constipation, unspecified; R00.1 Bradycardia, unspecified; J98.11 Atelectasis; F17.200 Nicotine dependence, unspecified, uncomplicated
CPT/HCPCS: 71275; 74177; 80047; 80076; 82550; 82553; 83690; 84484; 85025; 85610; 85730; 93005; 93041; 96361; 96374; 96375; 99284; J2270; J2405; Q9967

== ENCOUNTER → 2021-02-24 | Outpatient (CLI) | payer BC ==
[~2021-02-24] MED LIST changes: +COLA100C5 PO; +GABA-283 PO; -GABA-845 PO; +OXYC1TAB23 PO
--- NOTE | 2021-02-24 10:34 | REP ---
INDICATION: VENTRAL HERNIA W/O OBSTRUCTION. COMPARISON: Multiple the latest 01/07/2021 TECHNIQUE: Standard helical technique without intravenous or oral bowel preparatory contrast administration. FINDINGS: Lung bases are clear and unchanged. Limited evaluation of the solid intra-abdominal organs and gallbladder show no gross abnormalities or significant changes. There are bilateral nonobstructing nephroliths status quo. Limited evaluation of the pancreas and adrenal glands show no gross abnormalities. There is no free fluid or free air. Limited evaluation of the bowel loops and the mesenteries show no gross abnormalities. There is no free fluid or free air. Limited evaluation of the abdominal aorta and para aortic regions show no gross abnormalities or significant changes. There is no mass or adenopathy. There is no change in the osseous structures. The technologist has placed multiple BBs on the skin indicating multiple areas of pain. The skin and subcutanea has a normal appearance. There are no masses. The abdominal wall is intact. Bone window technique throughout the examination shows the osseous structures to be stable and intact. IMPRESSION: 1. The small focal area of increased density seen in the anterior subcutaneous abdomen on the prior examination has completely resolved. 2. Multiple bilateral nonobstructing nephroliths. 3. Other findings as described above. <Electronically signed by Reynaldo Vaughn > 02/24/21 [id number]
== END ==
LOC: M RAD 08:38
PROVIDERS: ATTEND Surgery
DX: K43.9 Ventral hernia without obstruction or gangrene (principal); N20.0 Calculus of kidney

== ENCOUNTER → 2021-03-23 | Outpatient (REF) | payer BC ==
[2021-03-24 20:11] LABS: TESTOSTERONE FREE (DIRECT) 13.8 pg/mL (6.8-21.5)
== END ==
LOC: M SFHCADAM 09:47
PROVIDERS: ATTEND Physician Assistant
DX: N52.9 Male erectile dysfunction, unspecified (principal)

== ENCOUNTER 2021-12-23 11:16 | Emergency (ER) | payer OTHER, BC ==
[~2021-12-23] VITALS: Ht 167.6 cm; Wt 72.7 kg
[2021-12-23 11:17] VITALS: BP 128/66
[2021-12-23] MEDS ORDERED: KETOROLAC 30 MG/ML 1ML VIAL IM ONE (12:10)
== END 2021-12-23 12:23 | disposition home or self-care (01) ==
LOC: M ED 11:16
DX: S93.401A Sprain of unspecified ligament of right ankle, initial encounter (principal); X50.9XXA Other and unspecified overexertion or strenuous movements or postures, initial encounter; Y92.9 Unspecified place or not applicable; Y93.9 Activity, unspecified; Y99.0 Civilian activity done for income or pay
CPT/HCPCS: 73610; 96372; 99282; J1885

== ENCOUNTER 2022-04-11 19:26 | Emergency (ER) | payer BC, OTHER ==
[~2022-04-11] VITALS: Ht 167.6 cm; Wt 68.2 kg
[2022-04-11 19:27] VITALS: BP 127/69
== END 2022-04-11 23:06 | disposition left against medical advice (07) ==
LOC: M ED 19:26
DX: Z53.21 Procedure and treatment not carried out due to patient leaving prior to being seen by health care provider (principal)

== ENCOUNTER 2022-04-12 00:27 | Emergency (ER) | payer BC ==
[~2022-04-12] VITALS: Ht 167.6 cm; Wt 68.2 kg
[2022-04-12 00:27] VITALS: BP 127/69
== END 2022-04-12 02:40 | disposition left against medical advice (07) ==
LOC: M ED 00:27
DX: Z53.21 Procedure and treatment not carried out due to patient leaving prior to being seen by health care provider (principal)

== ENCOUNTER → 2022-06-11 | Outpatient (CLI) | payer BC ==
[2022-06-11 18:36] LABS: HEMATOCRIT 46.2 % (42.0-52.0); HEMOGLOBIN 15.7 g/dl (13.5-17.5); MEAN CORPUSCULAR HEMOGLOBIN 30.2 pg (27.0-33.0); MEAN CORPUSCULAR VOLUME 88.8 fl (80.0-96.0); PLATELET COUNT, AUTOMATED 355 10^3/uL (150-450); WHITE BLOOD COUNT 14.3 10^3/uL (4.0-10.0)
[2022-06-11 19:07] LABS: ATYPICAL LYMPH 3 % (0-5); LYMPHOCYTES 25 % (16-44); MONOCYTES 3 % (0-5); NEUTROPHILS 69 % (28-66); PLATELET ESTIMATE NORMAL (NORMAL)
[2022-06-11 19:30] LABS: ALT/SGPT 27 U/L (12-78); AMYLASE 53 U/L (25-115); BILIRUBIN,TOTAL 0.3 MG/DL (0.2-1.0); BLOOD UREA NITROGEN 8 MG/DL (7-18); CALCIUM LEVEL 9.4 MG/DL (8.5-10.1); CARBON DIOXIDE LEVEL 30 MEQ/L (21-32); CHLORIDE LEVEL 105 MEQ/L (98-107); CREATININE FOR GFR 0.99 MG/DL (0.70-1.30); FERRITIN 96 NG/ML (26-388); FREE T4 0.82 NG/DL (0.76-1.46); GLOMERULAR FILTRATION RATE > 60.0 (>60); GLUCOSE, FASTING 88 MG/DL (70-100); LIPASE 77 U/L (73-393); POTASSIUM SERUM 4.9 MEQ/L (3.5-5.1); SODIUM LEVEL 137 MEQ/L (136-145); TOTAL PROTEIN 7.1 GM/DL (6.4-8.2)
[2022-06-11 20:15] LABS: VITAMIN B12 LEVEL 590 PG/ML (247-911)
== END ==
LOC: M LAB 18:00
PROVIDERS: ATTEND Physician Assistant
DX: R63.4 Abnormal weight loss (principal); F32.1 Major depressive disorder, single episode, moderate

== ENCOUNTER → 2022-06-14 | Outpatient (CLI) | payer BC ==
[~2022-06-14] MED LIST changes: +GASTROGRAFIN SOLUTION 30ML (Q9963) As Ordered ONE; +ISOVUE-370 76% 100ML VIAL As Ordered ONE
== END ==
LOC: M RAD 15:59
PROVIDERS: ATTEND Physician Assistant
DX: R63.4 Abnormal weight loss (principal); R10.13 Epigastric pain; F32.1 Major depressive disorder, single episode, moderate; N20.0 Calculus of kidney
CPT/HCPCS: 74178; Q9963; Q9967

== ENCOUNTER → 2022-07-30 | Outpatient (CLI) | payer BC ==
[~2022-07-30] MED LIST changes: -GASTROGRAFIN SOLUTION 30ML (Q9963) As Ordered ONE
== END ==
LOC: M RAD 07:45
PROVIDERS: ATTEND Physician Assistant
DX: J98.4 Other disorders of lung (principal); J98.11 Atelectasis; N20.0 Calculus of kidney

== ENCOUNTER → 2022-09-16 | Outpatient (CLI) | payer BC ==
[~2022-09-16] MED LIST changes: +BUPR-289 PO; -GABA600T4; +GABA600T4 PO; -ISOVUE-370 76% 100ML VIAL As Ordered ONE
== END ==
LOC: M LABSMTC 11:42
PROVIDERS: ATTEND Anesthesiology
DX: Z01.812 Encounter for preprocedural laboratory examination (principal); Z20.822 Contact with and (suspected) exposure to COVID-19

== ENCOUNTER 2022-09-17 09:32 | Day surgery (SDC) | payer BC ==
[~2022-09-17] VITALS: Ht 167.6 cm; Wt 68.4 kg
[~2022-09-17 09:32] MED LIST changes: +NS 1,000 ML IV ONE
[2022-09-17 12:05] VITALS: BP 111/66
== END 2022-09-17 12:14 | disposition home or self-care (01) ==
LOC: M OPP 09:32
PROVIDERS: ATTEND Surgery
DX: K64.8 Other hemorrhoids (principal); K63.89 Other specified diseases of intestine; K64.4 Residual hemorrhoidal skin tags; K31.89 Other diseases of stomach and duodenum; K21.9 Gastro-esophageal reflux disease without esophagitis; F41.9 Anxiety disorder, unspecified; F17.210 Nicotine dependence, cigarettes, uncomplicated; Z79.899 Other long term (current) drug therapy

== ENCOUNTER → 2022-09-28 | Outpatient (CLI) | payer BC ==
[~2022-09-28] MED LIST changes: -NS 1,000 ML IV ONE
[2022-09-28 18:40] LABS: BASO # 0.1 10^3/uL (0.0-0.2); BASO % 0.5 % (0.0-1.0); EOS # 0.2 10^3/uL (0.0-0.5); EOS % 1.2 % (0.0-3.0); HEMATOCRIT 45.6 % (42.0-52.0); HEMOGLOBIN 15.2 g/dl (13.5-17.5); LYMPH # 3.9 10^3/uL (1.5-5.0); LYMPH % 28.1 % (24.0-44.0); MEAN CORPUSCULAR HEMOGLOBIN 30.2 pg (27.0-33.0); MEAN CORPUSCULAR HGB CONC 33.3 g/dl (32.0-36.5); MEAN CORPUSCULAR VOLUME 90.7 fl (80.0-96.0); MONO # 0.8 10^3/uL (0.0-0.8); NEUTROPHILS # 8.9 10^3/uL (1.5-8.5); NEUTROPHILS % 63.8 % (36.0-66.0); PLATELET COUNT, AUTOMATED 309 10^3/uL (150-450); RED BLOOD COUNT 5.03 10^6/uL (4.30-6.10); WHITE BLOOD COUNT 13.9 10^3/uL (4.0-10.0)
[2022-09-28 18:44] LABS: LIPASE 27 U/L (12-53)
[2022-09-28 18:46] LABS: ALKALINE PHOSPHATASE 78 U/L (46-116); ALT/SGPT 22 U/L (7.0-40); AMYLASE 50 U/L (30-118); AST/SGOT 27 U/L (<34); BILIRUBIN,TOTAL 0.4 MG/DL (0.3-1.2); BLOOD UREA NITROGEN 11 MG/DL (9-23); CALCIUM LEVEL 9.5 MG/DL (8.5-10.1); CARBON DIOXIDE LEVEL 29 MMOL/L (20-31); CHLORIDE LEVEL 103 MMOL/L (98-107); CREATININE FOR GFR 1.03 MG/DL (0.70-1.30); GLOMERULAR FILTRATION RATE > 60.0 (>60); GLUCOSE, FASTING 134 MG/DL (60-100); POTASSIUM SERUM 4.4 MMOL/L (3.5-5.1); SODIUM LEVEL 138 MMOL/L (136-145); TOTAL PROTEIN 6.7 G/DL (5.7-8.2)
== END ==
LOC: M LAB 16:22
PROVIDERS: ATTEND Physician Assistant
DX: R59.0 Localized enlarged lymph nodes (principal); F17.210 Nicotine dependence, cigarettes, uncomplicated; F41.9 Anxiety disorder, unspecified; D72.829 Elevated white blood cell count, unspecified; R10.816 Epigastric abdominal tenderness

== ENCOUNTER → 2022-10-30 | Outpatient (CLI) | payer BC ==
[~2022-10-30] MED LIST changes: +ISOVUE-370 76% 100ML VIAL As Ordered ONE
== END ==
LOC: M RAD 08:07
PROVIDERS: ATTEND Physician Assistant
DX: R59.0 Localized enlarged lymph nodes (principal)

== ENCOUNTER → 2022-12-31 | Outpatient (CLI) | payer BC ==
[~2022-12-31] MED LIST changes: -ISOVUE-370 76% 100ML VIAL As Ordered ONE
[2022-12-31 19:11] LABS: PLATELET COUNT, AUTOMATED 251 10^3/uL (150-450)
[2022-12-31 19:32] LABS: INR 0.87
[2022-12-31 19:33] LABS: PARTIAL THROMBOPLASTIN TIME 28.4 SECONDS (24.8-34.2)
== END ==
LOC: M LAB 18:40
PROVIDERS: ATTEND Internal Medicine Pulmonary Disease
DX: Z01.812 Encounter for preprocedural laboratory examination (principal)

== ENCOUNTER 2023-01-09 08:58 | Day surgery (SDC) | payer BC ==
[~2023-01-09] VITALS: Ht 167.6 cm; Wt 74.8 kg
[~2023-01-09 08:58] MED LIST changes: +FLUO10CA18 PO
[2023-01-09] MEDS ORDERED: LR 1,000 ML IV SCH (09:45)
[2023-01-09] MEDS ORDERED: fentaNYL 100 MCG/2 ML INJECTION As Ordered ONE (10:15)
[2023-01-09] MEDS ORDERED: LIDOCAINE 2% 100MG/5ML SDV (FOR ANES.) As Ordered ONE (10:15)
[2023-01-09] MEDS ORDERED: ROCURONIUM BROMIDE 50MG/5ML VIAL As Ordered ONE (10:15)
[2023-01-09] MEDS ORDERED: propofoL 200 MG/20 ML VIAL As Ordered ONE (10:15)
[2023-01-09] MEDS ORDERED: MIDAZOLAM INJ 2MG/2ML VIAL As Ordered ONE (10:15)
[2023-01-09 10:42] LABS: HEMOGLOBIN 18.1 g/dl (13.5-17.5); MEAN CORPUSCULAR HEMOGLOBIN 30.9 pg (27.0-33.0); MEAN CORPUSCULAR HGB CONC 33.5 g/dl (32.0-36.5); MEAN CORPUSCULAR VOLUME 92.3 fl (80.0-96.0); PLATELET COUNT, AUTOMATED 260 10^3/uL (150-450); RED BLOOD COUNT 5.85 10^6/uL (4.30-6.10); WHITE BLOOD COUNT 12.3 10^3/uL (4.0-10.0)
[2023-01-09] MEDS ORDERED: EPINEPHrine 1MG/10ML SYRINGE 1.5IN As Ordered ONE (11:04)
[2023-01-09] MEDS ORDERED: CETACAINE SPRAY 5GM As Ordered ONE (11:04)
[2023-01-09 11:09] LABS: BLOOD UREA NITROGEN 11 MG/DL (9-23); CALCIUM LEVEL 8.4 MG/DL (8.5-10.1); CARBON DIOXIDE LEVEL 28 MMOL/L (20-31); CHLORIDE LEVEL 107 MMOL/L (98-107); CREATININE FOR GFR 1.02 MG/DL (0.70-1.30); GLOMERULAR FILTRATION RATE > 60.0 (>60); GLUCOSE, FASTING 76 MG/DL (60-100); POTASSIUM SERUM 4.9 MMOL/L (3.5-5.1); SODIUM LEVEL 138 MMOL/L (136-145)
[2023-01-09] MEDS ORDERED: SUGAMMADEX SODIUM 500 MG/5 ML VIAL (BRIDION) As Ordered ONE (11:35)
[2023-01-09] MEDS ORDERED: ONDANSETRON 4MG 2ML VIAL As Ordered ONE (11:35)
[2023-01-09] MEDS ORDERED: KETOROLAC 60MG 2ML VIAL As Ordered ONE (11:35)
[2023-01-09] MEDS ORDERED: ONDANSETRON 4MG 2ML VIAL IV PRN (11:55)
[2023-01-09] MEDS ORDERED: MORPHINE 2 MG/ML 1ML VIAL IV PRN (11:55)
[2023-01-09] MEDS ORDERED: fentaNYL 100 MCG/2 ML INJECTION IV PRN (11:55)
[2023-01-09] MEDS ORDERED: oxyCODONE 5MG TAB PO PRN (11:55)
[2023-01-09 13:31] VITALS: BP 106/61
== END 2023-01-09 13:58 | disposition home or self-care (01) ==
LOC: M SDC 08:58
PROVIDERS: ATTEND Internal Medicine Pulmonary Disease
DX: R59.0 Localized enlarged lymph nodes (principal); R91.8 Other nonspecific abnormal finding of lung field; K21.9 Gastro-esophageal reflux disease without esophagitis; F17.218 Nicotine dependence, cigarettes, with other nicotine-induced disorders; F41.9 Anxiety disorder, unspecified; Z79.899 Other long term (current) drug therapy
CPT/HCPCS: 31629; 31654; 36415; 71045; 80048; 85027; 88173; 88305; 93005; J0171; J1100; J1885; J2250; J2405; J3010

== ENCOUNTER → 2023-11-22 | Outpatient (CLI) | payer BC ==
[~2023-11-22] MED LIST changes: -GABA-283 PO; +GABA-284 PO; +ISOVUE-370 76% 100ML VIAL As Ordered ONE
== END ==
LOC: M RAD 07:46
PROVIDERS: ATTEND Internal Medicine Pulmonary Disease
DX: R91.8 Other nonspecific abnormal finding of lung field (principal); R59.0 Localized enlarged lymph nodes
CPT/HCPCS: 71260; Q9967

== ENCOUNTER → 2024-12-17 | Outpatient (CLI) | payer BC ==
[~2024-12-17] MED LIST changes: -CELE50CA PO; +CELE50CA17 PO; +FLUO-290 PO; -FLUO10CA18 PO; +GABA-1490 PO; -GABA600T4 PO; -ISOVUE-370 76% 100ML VIAL As Ordered ONE; +OMEGA-3 1000MG CAPSULE ONE; +PROHANCE 279.3MG/ML 15ML VIAL ONE
== END ==
LOC: M PLAIMG 07:31
PROVIDERS: ATTEND Physician Assistant
DX: M51.27 Other intervertebral disc displacement, lumbosacral region (principal); G89.29 Other chronic pain; R22.2 Localized swelling, mass and lump, trunk
CPT/HCPCS: 72158; A9576

== ENCOUNTER → 2025-05-19 | Outpatient (REF) | payer BC ==
[~2025-05-19] MED LIST changes: -OMEGA-3 1000MG CAPSULE ONE; -PROHANCE 279.3MG/ML 15ML VIAL ONE
[2025-05-19 14:33] LABS: PLATELET COUNT, AUTOMATED 275 10^3/uL (150-450)
[2025-05-19 14:36] LABS: ALT/SGPT 36 U/L (7.0-40); AST/SGOT 26 U/L (<34); CALCIUM LEVEL 9.8 MG/DL (8.5-10.1); CARBON DIOXIDE LEVEL 29 MMOL/L (20-31); CHLORIDE LEVEL 106 MMOL/L (98-107); CHOLESTEROL LEVEL 148 MG/DL (<200); CHOLESTEROL RISK RATIO 3.05 (<5); CREATININE FOR GFR 0.94 MG/DL (0.70-1.30); GLOMERULAR FILTRATION RATE > 90.0 (>60); LDL CHOLESTEROL 83.2 MG/DL (<100); NON-HDL-C 99.6 MG/DL; POTASSIUM SERUM 5.4 MMOL/L (3.5-5.1); SODIUM LEVEL 145 MMOL/L (136-145); TRIGLYCERIDES LEVEL 82 MG/DL (<150)
== END ==
LOC: M SFHCADAM 09:16
PROVIDERS: ATTEND Physician Assistant
DX: R59.0 Localized enlarged lymph nodes (principal); F17.211 Nicotine dependence, cigarettes, in remission; K21.9 Gastro-esophageal reflux disease without esophagitis; F41.9 Anxiety disorder, unspecified; G56.03 Carpal tunnel syndrome, bilateral upper limbs; Z13.220 Encounter for screening for lipoid disorders